=== PATIENT | female | born 1930 | race Caucasian/White ===

== ENCOUNTER 2016-11-02 21:01 | Inpatient (IN) | payer OTHER ==
[~2016-11-02] VITALS: Ht 165.1 cm; Wt 53.8 kg
[2016-11-02 21:52] LABS: PLATELET COUNT 415 x10^3mcL (130-400); RED CELL DISTRIBUTION WIDTH 15.2 % (11.5-14.5)
[2016-11-02 21:59] LABS: CALCIUM 7.8 mg/dL (8.5-10.1); CARBON DIOXIDE 25.7 mmol/L (21-32); CHLORIDE SERUM 109 mmol/L (98-107); CREATININE SERUM 0.9 mg/dL (0.6-1.0); GLUCOSE SERUM 112 mg/dL (74-106); SODIUM SERUM 144 mmol/L (136-145)
[2016-11-02 22:03] LABS: ALKALINE PHOSPHATASE 77 U/L (46-116); ALT/SGPT 27 U/L (14-59); AST/SGOT 37 U/L (15-37); BILIRUBIN TOTAL 0.71 mg/dL (0.20-1.00); TOTAL PROTEIN, SERUM 6.3 g/dL (6.4-8.2)
[2016-11-02 22:05] LABS: ALBUMIN 1.9 g/dL (3.4-5.0)
[2016-11-02 22:06] LABS: BAND NEUTROPHIL 5 % (0-10); METAMYELOCTE 3 % (0-2); MONOCYTE 5 % (0-7); SEGMENTED NEUTROPHILS 79 % (37-75)
[2016-11-02 22:09] LABS: PLATELET MORPHOLOGY FEW LARGE PLATELETS; rbc morphology (normal/abnorm) NORMAL (NORMAL)
[2016-11-02] MEDS ORDERED: AMIODARONE HCL200 MG PO (22:32)
[2016-11-02] MEDS ORDERED: XARELTO10 M1 PO (22:32)
[2016-11-02] MEDS ORDERED: LOVASTATIN20 MG PO (22:33)
[2016-11-02] MEDS ORDERED: COR6 PO (22:33)
[2016-11-02 23:40] VITALS: BP 130/69
[2016-11-03 01:15] LABS: T3 TOTAL 0.52 ng/mL
[2016-11-03 01:21] LABS: RED BLOOD CELLS 3.66 M/mm3 (4.10-5.10)
[2016-11-03 01:30] LABS: PHOSPHOROUS 2.4 mg/dL (2.5-4.9)
[2016-11-03 01:32] LABS: CHOLESTEROL/HDL RATIO 4.3
[2016-11-03 01:44] LABS: FREE T4 1.62 ng/dL (0.76-1.46); FREE THYROXINE INDEX 4.1 ug/dL (1.4-4.5); T4(THYROXINE) 10.6 ug/dL (4.7-13.3)
[2016-11-03 02:05] LABS: IRON 15 ug/dL (50-170); TOTAL IRON BINDING CAPACITY 136 ug/dL (250-450)
[2016-11-03 05:33] VITALS: BP 109/60
[2016-11-03 05:39] LABS: microscopic required? YES; urine erythrocyte 2+ (NEGATIVE)
[2016-11-03 05:48] LABS: AMPHETAMINE QUAL UR NONE DETECTED (NEG <=1000)
[2016-11-03 06:42] LABS: PLATELET COUNT 353 x10^3mcL (130-400)
[2016-11-03 06:46] VITALS: BP 109/60
[2016-11-03 07:00] LABS: CALCIUM 7.6 mg/dL (8.5-10.1); CARBON DIOXIDE 24.7 mmol/L (21-32); CHLORIDE SERUM 111 mmol/L (98-107); GLUCOSE SERUM 128 mg/dL (74-106); PHOSPHOROUS 2.7 mg/dL (2.5-4.9); POTASSIUM SERUM 3.6 mmol/L (3.5-5.1); SODIUM SERUM 143 mmol/L (136-145)
[2016-11-03 07:15] LABS: BASOPHIL % 0 % (0-2); RED CELL DISTRIBUTION WIDTH 15.5 % (11.5-14.5)
[2016-11-03 09:13] VITALS: BP 131/52
[2016-11-03 14:33] VITALS: BP 121/59
[2016-11-03 17:32] VITALS: BP 130/57
[2016-11-03 21:00] VITALS: BP 140/56
[2016-11-04 06:16] VITALS: BP 140/62
[2016-11-04 06:24] LABS: BASOPHIL % 0 % (0-2); PLATELET COUNT 363 x10^3mcL (130-400)
[2016-11-04 06:29] LABS: CALCIUM 7.6 mg/dL (8.5-10.1); CARBON DIOXIDE 28.3 mmol/L (21-32); CHLORIDE SERUM 106 mmol/L (98-107); GLUCOSE SERUM 103 mg/dL (74-106); MAGNESIUM 1.7 mg/dL (1.8-2.4); PHOSPHOROUS 2.7 mg/dL (2.5-4.9); POTASSIUM SERUM 3.9 mmol/L (3.5-5.1); SODIUM SERUM 141 mmol/L (136-145)
[2016-11-04 10:18] VITALS: BP 133/52
[2016-11-04 17:56] VITALS: BP 115/56
[2016-11-04 20:59] VITALS: BP 122/55
[2016-11-05 05:51] LABS: PLATELET COUNT 381 x10^3mcL (130-400)
[2016-11-05 06:14] LABS: CALCIUM 7.5 mg/dL (8.5-10.1); CARBON DIOXIDE 26.6 mmol/L (21-32); CHLORIDE SERUM 103 mmol/L (98-107); CREATININE SERUM 1.2 mg/dL (0.6-1.0); GLUCOSE SERUM 102 mg/dL (74-106); PHOSPHOROUS 3.1 mg/dL (2.5-4.9); POTASSIUM SERUM 3.5 mmol/L (3.5-5.1); SODIUM SERUM 139 mmol/L (136-145)
[2016-11-05 06:19] VITALS: BP 115/50
[2016-11-05 06:36] LABS: BASOPHIL % 0 % (0-2); RED CELL DISTRIBUTION WIDTH 15.2 % (11.5-14.5)
[2016-11-05 09:24] VITALS: BP 108/51
[2016-11-05 14:00] VITALS: BP 115/74
[2016-11-05 17:42] VITALS: BP 120/47
[2016-11-05 21:27] VITALS: BP 113/49
[2016-11-06 06:11] VITALS: BP 109/44
[2016-11-06 06:59] LABS: PLATELET COUNT 350 x10^3mcL (130-400)
[2016-11-06 07:01] LABS: CALCIUM 7.4 mg/dL (8.5-10.1); CARBON DIOXIDE 28.7 mmol/L (21-32); CHLORIDE SERUM 101 mmol/L (98-107); CREATININE SERUM 1.1 mg/dL (0.6-1.0); GLUCOSE SERUM 109 mg/dL (74-106); MAGNESIUM 1.8 mg/dL (1.8-2.4); PHOSPHOROUS 3.1 mg/dL (2.5-4.9); SODIUM SERUM 135 mmol/L (136-145)
[2016-11-06 07:07] LABS: RED CELL DISTRIBUTION WIDTH 15.2 % (11.5-14.5)
[2016-11-06 07:16] LABS: POTASSIUM SERUM 2.9 mmol/L (3.5-5.1)
[2016-11-06 09:14] LABS: BAND NEUTROPHIL 2 % (0-10); BASOPHIL 0 % (0-2); MONOCYTE 6 % (0-7); SEGMENTED NEUTROPHILS 86 % (37-75)
[2016-11-06 09:15] LABS: rbc morphology (normal/abnorm) ABNORMAL (NORMAL)
[2016-11-06 09:40] VITALS: BP 104/65
[2016-11-06 12:31] VITALS: BP 104/65
[2016-11-06 17:59] VITALS: BP 99/44
[2016-11-06 20:52] VITALS: BP 101/38
[2016-11-07 01:25] VITALS: BP 116/64
[2016-11-07 05:54] VITALS: BP 98/63
[2016-11-07 06:55] LABS: PLATELET COUNT 323 x10^3mcL (130-400)
[2016-11-07 06:57] LABS: RED CELL DISTRIBUTION WIDTH 15.4 % (11.5-14.5)
[2016-11-07 07:06] LABS: CALCIUM 7.5 mg/dL (8.5-10.1); CARBON DIOXIDE 25.7 mmol/L (21-32); CHLORIDE SERUM 107 mmol/L (98-107); CREATININE SERUM 0.9 mg/dL (0.6-1.0); GLUCOSE SERUM 107 mg/dL (74-106); MAGNESIUM 2.1 mg/dL (1.8-2.4); PHOSPHOROUS 2.7 mg/dL (2.5-4.9); POTASSIUM SERUM 3.4 mmol/L (3.5-5.1); SODIUM SERUM 140 mmol/L (136-145)
[2016-11-07 09:40] VITALS: BP 103/53
[2016-11-07 10:53] LABS: BAND NEUTROPHIL 1 % (0-10); BASOPHIL 0 % (0-2); MONOCYTE 6 % (0-7); SEGMENTED NEUTROPHILS 83 % (37-75)
[2016-11-07 11:00] LABS: rbc morphology (normal/abnorm) ABNORMAL (NORMAL)
[2016-11-07 11:02] LABS: target cell (codocyte) 1+
[2016-11-07 12:16] LABS: UA SPECIFIC GRAVITY 1.025 (1.005-1.035); microscopic required? YES; urine erythrocyte 1+ (NEGATIVE)
[2016-11-07 13:55] VITALS: BP 131/53
[2016-11-07] MEDS ORDERED: FER300 PO (13:58)
[2016-11-07] MEDS ORDERED: IPRATROPIUM BROM3 M2 HHN (13:58)
[2016-11-07] MEDS ORDERED: THERA TABS1 TAB PO (13:59)
[2016-11-07] MEDS ORDERED: LAC PO (13:59)
[2016-11-07] MEDS ORDERED: VITC PO (13:59)
[2016-11-07] MEDS ORDERED: ZOS2PM IV (14:00)
[2016-11-07 14:39] VITALS: BP 103/53
== END 2016-11-07 16:50 | DRG 177 ==
LOC: ED 21:01 → DU 22:17 → MU 11-07 11:31
PROVIDERS: Emergency Medicine; ADMIT Family Medicine
DX: J69.0 Pneumonitis due to inhalation of food and vomit (principal); N17.0 Acute kidney failure with tubular necrosis; E43 Unspecified severe protein-calorie malnutrition; I50.43 Acute on chronic combined systolic (congestive) and diastolic (congestive) heart failure; I42.9 Cardiomyopathy, unspecified; D68.9 Coagulation defect, unspecified; I11.0 Hypertensive heart disease with heart failure; E87.6 Hypokalemia; I48.2 Chronic atrial fibrillation; I25.10 Atherosclerotic heart disease of native coronary artery without angina pectoris; N20.0 Calculus of kidney; R73.03 Prediabetes; R31.9 Hematuria, unspecified; D64.9 Anemia, unspecified; E83.39 Other disorders of phosphorus metabolism; M17.11 Unilateral primary osteoarthritis, right knee; H40.9 Unspecified glaucoma; Z68.20 Body mass index [BMI] 20.0-20.9, adult; Z95.0 Presence of cardiac pacemaker; Z86.73 Personal history of transient ischemic attack (TIA), and cerebral infarction without residual deficits; Z79.01 Long term (current) use of anticoagulants
CPT/HCPCS: 83880; 84439; 97110-GP; 97116-GP; 97530-GP; J0456; J0696; J1940; J1956; J2543; J3475; J3480; J3490; J7030; J7050; J7620; Q0092

== ENCOUNTER 2016-11-10 18:46 | Inpatient (IN) | payer OTHER ==
[~2016-11-10] VITALS: Ht 165.1 cm; Wt 62.0 kg
[~2016-11-10 18:46] MED LIST: AMIODARONE HCL200 MG PO; COR6 PO; FER300 PO; IPRATROPIUM BROM3 M2 HHN; LAC PO; LOVASTATIN20 MG PO; THERA TABS1 TAB PO; VITC PO; XARELTO10 M1 PO; ZOS2PM IV
--- NOTE | 2016-11-10 19:06 | NUR ---
DR GARCIA AT BEDSIDE FOR MSE
--- NOTE | 2016-11-10 19:06 | NUR ---
PT BIB [facility] FROM [facility] FOR SOB AND CP. PER MEDIC PT WAS FOUND ON THE GROUND WITH 02 OF 82%, PT AAOX4, RESP LABOR WITH DIMINSHED LUNG SOUNDS AND NON PRODUCTIVEI COUGH. UPON ARRIVAL PT ON CPAP, PER DR GARCIA, CPAP TAKEN OFF, RESP LABORED WITH DRY COUGH, PT HAS 2 IV SITES THAT WERE ESTABLISHED BY [facility]. PT HOOKED UP TO MAINTENANCE SHOP TECHNICIAN AND PULSE OX, PTS SON AT BEDSIDE.
--- NOTE | 2016-11-10 19:40 | NUR ---
RESP AT BEDSIDE
[2016-11-10 19:43] LABS: CALCIUM 7.8 mg/dL (8.5-10.1); CARBON DIOXIDE 25.8 mmol/L (21-32); CHLORIDE SERUM 101 mmol/L (98-107); GLUCOSE SERUM 163 mg/dL (74-106); POTASSIUM SERUM 3.3 mmol/L (3.5-5.1); SODIUM SERUM 135 mmol/L (136-145)
[2016-11-10 19:46] LABS: PLATELET COUNT 421 x10^3mcL (130-400); RED CELL DISTRIBUTION WIDTH 15.9 % (11.5-14.5)
[2016-11-10 19:54] LABS: ALBUMIN 1.5 g/dL (3.4-5.0); ALKALINE PHOSPHATASE 71 U/L (46-116); ALT/SGPT 38 U/L (14-59); AST/SGOT 40 U/L (15-37); BILIRUBIN TOTAL 0.53 mg/dL (0.20-1.00); TOTAL PROTEIN, SERUM 5.9 g/dL (6.4-8.2)
[2016-11-10 19:56] LABS: CK-MB 0.8 ng/mL (0-3.6)
[2016-11-10 20:08] LABS: BAND NEUTROPHIL 2 % (0-10); BASOPHIL 0 % (0-2); MONOCYTE 3 % (0-7); SEGMENTED NEUTROPHILS 89 % (37-75); rbc morphology (normal/abnorm) ABNORMAL (NORMAL)
--- NOTE | 2016-11-10 20:25 | NUR ---
PT MEDICATED PER MD ORDERS.
[2016-11-10 21:00] VITALS: BP 146/96
--- NOTE | 2016-11-10 21:12 | NUR ---
REPORT GIVEN TO KO TO ASSUME CARE OF PT ON TELE UNIT
--- NOTE | 2016-11-10 21:28 | NUR ---
CAME FROM ER VIA STRETCHER,PATIENT WAS JUST HERE 2 DAYS AGO.SON AND DAUGHTER IN LAW AT BEDSIDE.SURU WILL ADMIT PATIENT.PUT IN ROOM 241 A AND MADE COMFORTABLE.ATB INFUSING,NS AT 50 CC/ HOUR NEW ORDER.
[2016-11-10 21:34] LABS: UA SPECIFIC GRAVITY 1.025 (1.005-1.035); microscopic required? YES; urine erythrocyte TRACE (NEGATIVE)
[2016-11-10 21:49] LABS: T3 TOTAL 0.48 ng/mL
[2016-11-10 22:04] LABS: MAGNESIUM 1.9 mg/dL (1.8-2.4)
[2016-11-10 22:05] LABS: CHOLESTEROL/HDL RATIO 4.2
[2016-11-10 22:09] VITALS: BP 146/96
--- NOTE | 2016-11-10 22:15 | NUR ---
RECEIVED PT FROM ED VIA MIREYA. ORIENTED PT TO ROOM AND SURROUNDINGS. IV NOTED TO LAC PATENT AND INTACT. TELE 28 PLACED ON PT READING NSR. INSTRUCTED PT ON THE USE OF CALL LIGHT FOR ASSISTANCE. ENDORSED PT TO PRIMARY NURSE KO
[2016-11-10 22:22] LABS: FREE T4 1.56 ng/dL (0.76-1.46); FREE THYROXINE INDEX 4.1 ug/dL (1.4-4.5); T4(THYROXINE) 10.5 ug/dL (4.7-13.3)
--- NOTE | 2016-11-10 22:34 | NUR ---
PATIENT DECIDED TO BE DNR,SON AT BEDSIDE,BROCK AND DAUGHTER IN LAW,ANOTHER SON KARLEY WHICH IS HOME AWARE. OF THIS.DAVIDU DID TALKED TO DR LARSEN.AND DR LARSEN TLAKED TO THE FAMILY AND THE PATIENT,THAT IS WHAT THE PATIENT WISH,NO CODE STATUS.
--- NOTE | 2016-11-10 22:51 | NUR ---
PATIENT IS ON HIGH FLOW OXYGEN AT 55 LITER,DIMINISHED,NON PRODUCTIVE COUGH.CRX/PNEUMONIA.PACER ON DEMAND TELE 28.SKIN IS INTACT.UA DONE IN ER,NEGATIVE.
--- NOTE | 2016-11-11 01:54 | NUR ---
PATIENT ASSISTED TO RESTROOM/BSC,O2 SAT DROPS WHEN O2 IS OFF,HAS TO PUT IT BACK RIGHT AWAY BUT IT TAKES A WHILE TO GO BACK ABOVE 90%rt has no extension for the machine.ASKED DR SABA IF WE CAN GET A FAY BUT HE SAYS NO,NO INDICATION FOR HER TO HAVE A FAY.WILL JUST PUT BEDSIDE COMMODE NEXT TO O2.
--- NOTE | 2016-11-11 03:30 | NUR ---
CHARGE NURSE ABLE TO GET A FAY CATH INSERTION,SO SHE DO NOT HAVE TO GET UP,ALSO NOT REMOVING O2,ABLE TO INSERT WITHOUT ANY INCIDENT,JAMES URINE OUTPUT,PATIENT ABLE TO UNDERSTAND THAT SHE DO NOT HAVE TO GET UP ANYMORE,PATIENT GRATEFUL.
[2016-11-11 04:12] VITALS: Ht 165.1 cm; Wt 62.0 kg
--- NOTE | 2016-11-11 04:35 | NUR ---
FORGETS THAT SHE HAS FAY,SAYS SHE WANTS TO URINATE,REMINDED SHE HAS FAY NOW.DRAINING WELL JAMES URINE.NS AT 50 CC/ HOUR,ATB SCHEDULED INITIATED FROM LAST NITE,ALSO HAD LEVAQUIN IN ER/WBC ELEVATED.ALSO PNEUMONIA.
[2016-11-11 06:07] VITALS: BP 122/53
--- NOTE | 2016-11-11 06:19 | NUR ---
I AND O MEASURED.FAY INTACT.CONTINOUS ON HIGH CONCENTRATION O2 100 %WILL ENDORSE TO NEXT SHIFT.PATIENT DNR STATUS.
[2016-11-11 06:34] LABS: CALCIUM 7.8 mg/dL (8.5-10.1); CARBON DIOXIDE 26.2 mmol/L (21-32); CHLORIDE SERUM 103 mmol/L (98-107); CREATININE SERUM 0.9 mg/dL (0.6-1.0); GLUCOSE SERUM 127 mg/dL (74-106); POTASSIUM SERUM 3.3 mmol/L (3.5-5.1); SODIUM SERUM 136 mmol/L (136-145)
--- NOTE | 2016-11-11 07:05 | NUR ---
PT IN LOW FOWLERS. ON HIGH FLOW NASAL CANULA. MOUTH BREATHING NOTED, WITH SLIGHT ACCESSORY EFFORT TO BREATH. O2SAT: 88 CONTINUOUS MONITORING. DENIES PAIN AT MOMENT. FAY CATHETER IN PLACE. IV INFUSING WELL TO RAC NS 50ML/HR. IV AT LFA #20 HEP LOCKED. BED IN LOWEST POSITION, CALL LIGHT WITHIN REACH.
[2016-11-11 07:36] LABS: PLATELET COUNT 406 x10^3mcL (130-400); RED CELL DISTRIBUTION WIDTH 15.5 % (11.5-14.5)
[2016-11-11 09:47] VITALS: BP 128/63
[2016-11-11 10:12] LABS: BAND NEUTROPHIL 14 % (0-10); BASOPHIL 0 % (0-2); MONOCYTE 6 % (0-7); SEGMENTED NEUTROPHILS 77 % (37-75); rbc morphology (normal/abnorm) ABNORMAL (NORMAL); tear drop cell (dacryocyte) 1+
[2016-11-11 10:14] LABS: PLATELET MORPHOLOGY PLATELETS NORMAL; burr cell (echinocyte) 1+
--- NOTE | 2016-11-11 11:45 | NUR ---
PT IN BED. REMAINS IN HIGH FLOW NASAL CANULA AT 55LPM. O2SAT: BETWEEN HIGH 70S-84%. PT RESPONDS TO COMMAND. ALERT/ORIENTED. WILL CONTINUE TO MONITOR.
--- NOTE | 2016-11-11 13:37 | NUR ---
P.T. NOTES RECEIVED P.T. EVAL ORDER; HOLD P.T. EVAL TODAY PER NURSE REQUEST; Pt ON HI FLOW, O2 SATs 70s^80s; CALL LIGHT, PHONE, TABLE IN REACH; FOLLOW UP TOMORROW. PVE
--- NOTE | 2016-11-11 13:55 | NUR ---
PT O2 SAT: IN 70S. DR. LAWRENCE MADE AWARE. EKG, CXR, AND BIPAP ORDERED.
--- NOTE | 2016-11-11 13:56 | NUR ---
PT ON BIPAP NOW. O2SAT: 95%.
[2016-11-11 14:00] VITALS: BP 83/42
[2016-11-11 17:16] VITALS: BP 102/46
--- NOTE | 2016-11-11 17:45 | NUR ---
AFTERNOON MEDS GIVEN, PT TOLERATED WELL. PT PUT ON NASAL CANULA OXIMIZER FOR DINNER, POOR APPETITE NOTED. BIPAP RESTARTED.
--- NOTE | 2016-11-11 19:49 | NUR ---
SHIFT REASSESSMENT DONE.PATIENT ALERT AND ORIENTED,SHORT TERM MEMORY.ON BIPAP NOW,CXR PATCHY OPACITIES.GEN WEAKNESS.ELEVATE LOWER EXT.NS AT 20 CC/ HOUR LFA.TELE 28 SR,HAS ALSO PACER.SKIN COLOR REMAINS PALE,NO SKIN IRRITATION.FAMILY AT BEDSIDE,SUPPORTIVE OF CARE.CALL LIGHT IN REACH.
--- NOTE | 2016-11-11 21:24 | NUR ---
SONS HERE,KARLEY AND BROCK AND DAUGHTER IN LAW BUNNY,DISCUSSED CODE STATUS WITH THEM,SHE IS MODIFIED CODE NOW,NOW DNR,PATIENT IS ON BIPAP.
--- NOTE | 2016-11-11 21:28 | NUR ---
SALLY AT BEDSIDE RODNEY,DISCUSSED CODE STATUS NOW MODIFIED CODE,BIPAP CONTINOUS,SATURATION 98%BP MEDS NOT GIVEN,LOW 98/45.HAD BOLUS EARLIER FROM DAY SHIFT FOR LOW BP.
--- NOTE | 2016-11-11 21:30 | NUR ---
IV INFILTRATED, REMOVED IV CATHETER, CANNULA INTACT. STARTED NEW IV 20G IN LW, IV SITE WNL
[2016-11-11 21:58] VITALS: BP 98/45
--- NOTE | 2016-11-11 22:52 | NUR ---
PATIENT HAD SOFT STOOL,BEDPAN,KEEP CLEAN AND DRY.REPOSITIONED FOR COMFORT,CORRECT BODY ALIGNMENT MAINTAINED.
--- NOTE | 2016-11-11 23:55 | NUR ---
FAMILY AT BEDSIDE 5 OF THEM TOTAL,QUIET ENVIRONMENT MAINTAINED,PATIENT ATB SCHEDULED.LASIX AND SOLUMEDROL INITIATED TONIGHT.
--- NOTE | 2016-11-12 00:12 | NUR ---
4 FAMILY MEMBER LEFT AT THIS TIME,KARLEY STAYING AT BEDSIDE,SON.
--- NOTE | 2016-11-12 00:50 | NUR ---
PT 02 SAT 89-90% ON 100% FI02, RR 38-40/MIN. PT AROUSED EASILY, 02 SAT UP TO 93%. BREATH SOUNDS SCATTERED RALES HEARD GERARD. BP 106/49 (68). TELE SHOWS SR WITH HR 65/MIN. DR. SABA MADE AWARE.
--- NOTE | 2016-11-12 01:14 | NUR ---
EXTRA LASIX 20 MG IVP GIVEN AT THIS TIME,CHEST AUS BOTH BASES WET.HOB UP.BIPAP MACHINE READJUSTED.
--- NOTE | 2016-11-12 05:50 | NUR ---
I AND O MEASURED.AM MEDS GIVEN.WILL ENDORSE TO NEXT SHIFT.
[2016-11-12 06:20] VITALS: BP 107/71
[2016-11-12 06:25] LABS: CALCIUM 7.9 mg/dL (8.5-10.1); CARBON DIOXIDE 26.2 mmol/L (21-32); CHLORIDE SERUM 106 mmol/L (98-107); CREATININE SERUM 1.2 mg/dL (0.6-1.0); GLUCOSE SERUM 145 mg/dL (74-106); PHOSPHOROUS 4.1 mg/dL (2.5-4.9); POTASSIUM SERUM 3.7 mmol/L (3.5-5.1); SODIUM SERUM 142 mmol/L (136-145)
--- NOTE | 2016-11-12 07:30 | NUR ---
RECEIVED Pt. SLEEPY EASILY AROUSABLE VERBALLY RESPONSIVE AAOX2-3 FORGETFUL. HOB ELEVATED, Pt. ON BIPAP DENIES DYSPNEA, DENIES PAIN/DISCOMFORT. TELE IN PLACE HR 60 PACED ON DEMAND, DENIES CHEST PAIN/PRESSURE. IVF RUNNING TO IV AT LEFT HAND PATENT AND INTACT. FAY CATHETER JAMES COLORED URINE NOTED. BED LOW/LOCKED. FAMILY AT BEDSIDE. CALL LIGHT IN REACH. WILL CONTINUE TO MONITOR.
[2016-11-12 07:42] LABS: PLATELET COUNT 395 x10^3mcL (130-400)
[2016-11-12 07:47] LABS: RED CELL DISTRIBUTION WIDTH 15.9 % (11.5-14.5)
--- NOTE | 2016-11-12 08:30 | NUR ---
MADE ROUNDS WITH DR. DANGELO AND MEDICINE TEAM, TO TRY HOSPICE EVAL, Pt. AND SON AT BEDSIDE AND AGREED WITH PLAN OF CARE.
[2016-11-12 08:35] LABS: BAND NEUTROPHIL 9 % (0-10); BASOPHIL 0 % (0-2); MONOCYTE 3 % (0-7); SEGMENTED NEUTROPHILS 86 % (37-75)
[2016-11-12 08:38] LABS: PLATELET MORPHOLOGY PLATELETS NORMAL; rbc morphology (normal/abnorm) ABNORMAL (NORMAL)
[2016-11-12 08:39] LABS: burr cell (echinocyte) 1+; target cell (codocyte) 1+; tear drop cell (dacryocyte) 1+
[2016-11-12 10:39] VITALS: BP 99/70
--- NOTE | 2016-11-12 14:53 | NUR ---
Pt. SITTING UP IN CHAIR AT BEDSIDE WITH FAMILY. Pt. ALERT, AWAKE AND ORIENTED. BIPAP IN PLACE. DR. LAWRENCE AT BEDSIDE.
[2016-11-12 15:24] VITALS: BP 84/42
--- NOTE | 2016-11-12 18:16 | NUR ---
Pt. REMAINS SLEEPY, EASILY AROUSABLE, VERBALLY RESPONSIVE ORIENTED X 2-3 WITH FORGETFULNESS, REMAINS ON BIPAP O2 SAT 90-95% DENIES DYSPNEA. HOB ELEVATED. DENIES PAIN/DISCOMFORT. TELE IN PLACE. IVF RUNNING TO IV AT LEFT HAND PATENT AND INTACT. DR. ALEXANDER AND Pt. SONS AT BEDSIDE. FAY CATHETER WITH JAMES COLORED URINE NOTED. BED LOW/LOCKED. CALL LIGHT IN REACH.
[2016-11-12 18:33] VITALS: BP 107/47
--- NOTE | 2016-11-12 19:29 | NUR ---
RECEIVED PT FROM PREVIOUS SHIFT NURSE. PT AOX3. TELE #28, PACED.HR 60. DENIES CP/PRESSURE. PULSES GOOD, NO EDEMA NOTED. LUNG SOUNDS DIMINISHED, ON BIPAP. DENIES SOB/ DIFFICULTY BREATHING. BOWEL SOUNDS ACTIVE. FAY IN PLACE, YELLOW OUTPUT NOTED. GENERALIZED WEAKNESS. SKIN INTACT. IV IN L. HAND, INTACT AND PATENT. BED IN LOWEST POSITION. CALL LIGHT WITHIN REACH. WILL CONTINUE TO MONITOR.
[2016-11-12 21:25] VITALS: BP 95/40
--- NOTE | 2016-11-12 21:51 | NUR ---
PT BP 95/40 MAP [address]G [address] LASIX[address] SABA AWARE.
[2016-11-13] VITALS (8 sets, daily range): BP systolic 98–118; BP diastolic 39–53
--- NOTE | 2016-11-13 02:06 | NUR ---
PT RESTING IN BED. RR EVEN AND UNLABORED. ON BIPAP. NO ACUTE DISTRESS NOTED. SON AT BEDSIDE. BED IN LOWEST POSITION. CALL LIGHT WITHIN REACH. WILL CONTINUE TO MONITOR.
[2016-11-13 06:47] LABS: PLATELET COUNT 377 x10^3mcL (130-400)
[2016-11-13 07:00] LABS: CALCIUM 7.9 mg/dL (8.5-10.1); CARBON DIOXIDE 28.3 mmol/L (21-32); CHLORIDE SERUM 107 mmol/L (98-107); CREATININE SERUM 1.1 mg/dL (0.6-1.0); GLUCOSE SERUM 132 mg/dL (74-106); MAGNESIUM 2.3 mg/dL (1.8-2.4); PHOSPHOROUS 3.6 mg/dL (2.5-4.9); POTASSIUM SERUM 3.3 mmol/L (3.5-5.1); SODIUM SERUM 143 mmol/L (136-145)
[2016-11-13 07:19] LABS: RED CELL DISTRIBUTION WIDTH 16.1 % (11.5-14.5)
--- NOTE | 2016-11-13 07:20 | NUR ---
RECEIVED Pt. REMAINS AAOX3, ON BIPAP O2SAT 90-92%. DENIES PAIN/DISCOMFORT. TELE IN PLACE HR 60 PACED. DENIES CHEST PAIN/PRESSURE. IVF RUNNING TO IV AT LEFT HAND PATENT AND INTACT. FAY CATHETER DRAINING JAMES COLORED URINE. SON AT BEDSIDE. BED LOW/LOCKED. CALL LIGHT IN REACH.
--- NOTE | 2016-11-13 07:40 | NUR ---
MADE ROUNDS WITH DR. DANGELO AND MEDICINE TEAM, CONTINUE IV ANTIBIOTICS AND AGREED WITH PLAN OF CARE.
[2016-11-13 09:37] LABS: BAND NEUTROPHIL 0 % (0-10); BASOPHIL 0 % (0-2); MONOCYTE 2 % (0-7); SEGMENTED NEUTROPHILS 96 % (37-75)
[2016-11-13 09:39] LABS: PLATELET MORPHOLOGY PLATELETS NORMAL; rbc morphology (normal/abnorm) ABNORMAL (NORMAL); target cell (codocyte) 1+
--- NOTE | 2016-11-13 09:53 | NUR ---
Pt. BP 112/[address] ARGENIS KERNS TO GIVE LASIX AND COREG AND GIVEN PER EMAR.
--- NOTE | 2016-11-13 10:39 | NUR ---
K LEVEL AT 3.3 DR. ARNOLD NOTIFIED.
--- NOTE | 2016-11-13 13:00 | NUR ---
HELPED Pt. EAT LUNCH TRAY OF PUREED DIET. Pt. ABLE TO TOLERATE FEW SPOONFULS WHILE ON OXIMIZER THEN Pt. STARTED TO DESATURATE TO LOW 80's AND RESUMED BIPAP ORDERED AND O2SAT INCREASED TO 95%-96%
--- NOTE | 2016-11-13 13:55 | NUR ---
Pt. BP 108/44 [address] ARNOLD NOTIFIED.
--- NOTE | 2016-11-13 14:57 | NUR ---
DR. ARNOLD AT BEDSIDE RECHECKED Pt. BP 107/45 MAP 61 HR 60.
--- NOTE | 2016-11-13 18:07 | NUR ---
Pt. AAOX3, REMAINS ON BIPAP O2SAT 96-98% HOB ELEVATED. DENIES PAIN/DISCOMFORT. IVF RUNNING TO IV LEFT WRIST PATENT AND INTACT. FAY CATHETER DRAINING YELLOW URINE NOTED. TELE IN PLACE. BED LOW/LOCKED. SON AT BEDSIDE. CALL LIGHT IN REACH.
--- NOTE | 2016-11-13 18:25 | NUR ---
PHYSICAL THERAPY DAILY NOTES CO-SIGN All documentation done by the System Archive Analyst for 11/13/16 has been reviewed. I agree with the documentation. Reviewed/Co-Signed by: Sulma Colunga DPT Documentation Done by: Blake Thomas DISEASE CASE MANAGER Patient narda tx well, progressing towards goals. Patient demo improved activity narad, gait limited by BiPAP. Patient able to narda up in [facility], nursing already assisted patient BTB upon returning to assist patient BTB. Cont with PT POC as narda/safe, monitor vitals and f/u with RT/RN d/t BiPAP.
--- NOTE | 2016-11-13 19:55 | NUR ---
ASLEEP, EASILY AWAKENED. ABLE TO MAKE NEEDS KNOWN. ORIENTED X 3. HOB ELEVATED 45 DEG. ON BIPAP, SETTINGS OF IPAP 12, EPAP 6,RATE 12, O2 100%. TIDAL VALUE 428, RR 28/MIN, O2 SAT 97% ON CONTINUOUS PULSE OX. PACED RHYTHM ON TELE, HR 60/MIN. BLANCHABLE REDNESS TO RIGHT HEEL. NON-BLANCHABLE REDNESS TO COCCYX/BUTTOCKS. PLACED ON AIR MATTRESS, Z GUARD APPLIED, TURNED AND REPOSITIONED TO RIGHT SIDE. IVF OF NS AT 20ML/HR. FAY CATH DRAINING YELLOW COLORED URINE.
--- NOTE | 2016-11-13 21:03 | NUR ---
INFORMED DR. LARSEN VIA [place] BP 98/39, MAP 55
--- NOTE | 2016-11-13 21:09 | NUR ---
DR. LARSEN AWARE OF BP 98/39.
--- NOTE | 2016-11-13 21:09 | NUR ---
NOTED NEW ORDER D/C LASIX
--- NOTE | 2016-11-13 21:22 | NUR ---
DR. LARSEN AWARE LASIX AND COREG NOT ADMINISTERED.
--- NOTE | 2016-11-13 22:50 | NUR ---
PT'S SON TO STAY THE NIGHT.
--- NOTE | 2016-11-14 02:00 | NUR ---
awake and alert, turned and repositioned to right side. paced on tele. ivf of ns at 20ml/hr. call light within easy reach.
--- NOTE | 2016-11-14 05:39 | NUR ---
O2 SAT 88-89% ON BIPAP 100%FIO2. RESP THERAPIST AND DR. ARGENIS GABRIEL.
[2016-11-14 06:06] VITALS: BP 142/57
--- NOTE | 2016-11-14 06:23 | NUR ---
O2 SAT 88%, RR 33/MIN. TIDAL VOLUME 522. EASILY AWAKENED. HOB KEPT ELEVATED 40-45 DEG. PACED RHYTHM ON TELE. SON AT BEDSIDE.
--- NOTE | 2016-11-14 07:11 | NUR ---
RECEIVED Pt. ALERT, AWAKE AND ORIENTED ON BIPAP FI02 100% O2SAT 88%, DENIES PAIN/DISCOMFORT. TELE IN PLACE NSR HR 62. IVF RUNNING TO IV AT LEFT WRIST PATENT AND INTACT. AIR MATTRESS IN PLACE. BED LOW/LOCKED. CALL LIGHT IN REACH. WILL CONTINUE TO MONITOR.
[2016-11-14 07:12] LABS: PLATELET COUNT 395 x10^3mcL (130-400)
--- NOTE | 2016-11-14 07:19 | NUR ---
EYES CLOSED, EASILY AWAKENED. SON AT BEDSIDE. STILL ON BIPAP. ENDORSED TO NURSE MERCEDES.
[2016-11-14 07:27] LABS: CALCIUM 8.1 mg/dL (8.5-10.1); CARBON DIOXIDE 29.8 mmol/L (21-32); CHLORIDE SERUM 111 mmol/L (98-107); CREATININE SERUM 1.2 mg/dL (0.6-1.0); GLUCOSE SERUM 125 mg/dL (74-106); MAGNESIUM 2.5 mg/dL (1.8-2.4); PHOSPHOROUS 3.5 mg/dL (2.5-4.9); POTASSIUM SERUM 3.8 mmol/L (3.5-5.1); SODIUM SERUM 148 mmol/L (136-145)
--- NOTE | 2016-11-14 07:53 | NUR ---
Pt. SON REPORTED THAT Pt. WANTED SOME WATER AND THAT HE REMOVED BIPAP AND GAVE Pt. WATER. Pt. SON INSTRUCTED NOT TO TOUCH MEDICAL EQUIPTMENT FOR Pt. SAFETY AND TO USE CALL LIGHT FOR NEEDS. Pt. SON VERBALIZED UNDERSTANDING.
--- NOTE | 2016-11-14 07:58 | NUR ---
MADE ROUNDS WITH DR. DANGELO AND MEDICINE TEAM, Pt. CONTINUE PLAN OF CARE AND AGREED.
--- NOTE | 2016-11-14 09:19 | NUR ---
BUN 61 DR. MORE NOTIFIED.
[2016-11-14 09:28] LABS: RED CELL DISTRIBUTION WIDTH 16.1 % (11.5-14.5)
--- NOTE | 2016-11-14 10:10 | NUR ---
DR. MORE NOTIFIED THAT BP 98/47 MAP 64 HR 62 AND THAT COREG WAS HELD.
[2016-11-14 10:15] VITALS: BP 98/47
[2016-11-14 10:47] LABS: BAND NEUTROPHIL 0 % (0-10); BASOPHIL 0 % (0-2); MONOCYTE 1 % (0-7); SEGMENTED NEUTROPHILS 97 % (37-75)
[2016-11-14 10:48] LABS: rbc morphology (normal/abnorm) ABNORMAL (NORMAL)
[2016-11-14 10:49] LABS: PLATELET MORPHOLOGY PLATELETS NORMAL
[2016-11-14 12:53] VITALS: BP 149/59
--- NOTE | 2016-11-14 14:48 | NUR ---
TELE CHANGED TO TELE 45.
--- NOTE | 2016-11-14 16:08 | NUR ---
Pt. FAY CATHETER LEAKING 400 ML JAMES URINE NOTED. NEW FAY CATHETER 16F INSERTED USING STERILE TECHNIQUE. Pt. TOLERATED PROCEDURE WELL.
[2016-11-14 18:07] VITALS: BP 149/55
--- NOTE | 2016-11-14 18:41 | NUR ---
Pt. AAOX4, ON BIPAP AND RT PROTOCOL. DENIES PAIN/DISCOMFORT. TELE IN PLACE. IVF RUNNING TO IV AT LEFT WRIST PATENT AND INTACT. FAY CATHETER DRAINING JAMES COLORED URINE. Z GUARD APPLIED TO BUTTOCKS, AIR MATTRESS IN PLACE AND REPOSITIONED FREQUENTLY. BED LOW/LOCKED. CALL LIGHT IN REACH. SON AT BEDSIDE.
--- NOTE | 2016-11-14 19:10 | NUR ---
AWAKE AND ALERT, HOB ELEVATED 30 DEG. ABLE TO MAKE NEEDS KNOWN. ON BED [place]. PASSED LOOSE, DARK STOOL. HYGIENE NEEDS ATTENDED TO WITH ASSISTANCE FROM NURSE LONG. REDNESS NOTED TO COCCYX/BUTTOCKS, APPEARS LESS THAN YESTERDAY. Z GUARD APPLIED. ON AIR MATTRESS. ELEVATED FEET ON PILLOWS. ON BIPAP, FIO2 OF 100%, RR 33-36/MIN, O2 SAT 89-93%. PACED RHYTHM ON TELE #45. DENIES HAVING PAIN AT THIS TIME.
[2016-11-14 20:35] VITALS: BP 132/52
--- NOTE | 2016-11-15 00:29 | NUR ---
O2 SAT 79%. PT'S SON IN ROOM. TALKING TO PT. PT INDICATING SHE WANTS TO BE OFF BIPAP. PT'S SON STATED HIS BROTHER COMING OVER FROM WORK. INFORMED DR. LARSEN. TALKING TO PT'S SON AT THIS TIME.
--- NOTE | 2016-11-15 00:33 | NUR ---
DR. LARSEN IN PT'S ROOM TALKING TO PT. PT STATED SHE WANTS TO BE OFF BIPAP. PT'S SON STATED TO WAIT UNTIL HIS BROTHER ARRIVES.
--- NOTE | 2016-11-15 01:12 | NUR ---
PT'S SON KARLEY HERE. TALKING TO PT AT THIS TIME. PT'S OTHER SON BROCK STATED THEY WILL JUST CALL IF THEY NEED ANYTHING OR WANT TO SPEAK WITH
--- NOTE | 2016-11-15 01:13 | NUR ---
NOTED NEW ORDER PT RESUSCITATION CODE IS DNR.
--- NOTE | 2016-11-15 01:56 | NUR ---
DR. LARSEN IN ROOM. PT WANTS BIPAP OFF. PT'S TWO SONS AND FEMALE FAMILY MEMBERS IN ROOM. BIPAP REMOVED BY RESP THERAPIST. PLACED ON 2LPM OF O2 VIA NC. O2 SAT 47%.
--- NOTE | 2016-11-15 02:26 | NUR ---
DR. LARSEN PRONOUNCED PT AT 0220H. FAMILY MEMBERS IN ROOM.
--- NOTE | 2016-11-15 03:53 | NUR ---
FAMILY MEMBERS LEFT. POST MORTEM CARE DONE.
== END 2016-11-15 02:20 | disposition expired | DRG 871 ==
LOC: ED 18:46 → DU 20:44
PROVIDERS: Emergency Medicine; Family Medicine; ADMIT Family Medicine
DX: A41.9 Sepsis, unspecified organism (principal); N17.0 Acute kidney failure with tubular necrosis; J69.0 Pneumonitis due to inhalation of food and vomit; E43 Unspecified severe protein-calorie malnutrition; I42.0 Dilated cardiomyopathy; N20.1 Calculus of ureter; E87.0 Hyperosmolality and hypernatremia; R65.20 Severe sepsis without septic shock; I48.2 Chronic atrial fibrillation; M94.0 Chondrocostal junction syndrome [Tietze]; I25.10 Atherosclerotic heart disease of native coronary artery without angina pectoris; E87.6 Hypokalemia; H40.9 Unspecified glaucoma; E83.41 Hypermagnesemia; R73.03 Prediabetes; M62.50 Muscle wasting and atrophy, not elsewhere classified, unspecified site; E83.39 Other disorders of phosphorus metabolism; Z51.5 Encounter for palliative care; Z66 Do not resuscitate; D64.9 Anemia, unspecified; R31.9 Hematuria, unspecified; Z68.20 Body mass index [BMI] 20.0-20.9, adult; Z95.0 Presence of cardiac pacemaker; Z87.891 Personal history of nicotine dependence; Z79.01 Long term (current) use of anticoagulants; M17.11 Unilateral primary osteoarthritis, right knee; Z86.73 Personal history of transient ischemic attack (TIA), and cerebral infarction without residual deficits
CPT/HCPCS: 36600; 83880; 84439; 97110-GP; 97116-GP; 97530-GP; J1940; J1956; J2270; J2543; J2920; J7030; J7040; J7620; Q0092